=== PATIENT | male | born 1980 | race Caucasian/White ===

== ENCOUNTER 2020-01-28 17:36 | Emergency (ER) | payer BC ==
[2020-01-28] MEDS ORDERED: Orphenadrine 100 MG Tab.ER PO STA (18:04)
--- NOTE | 2020-01-28 18:09 | EDM.PDOC ---
<SudheerDavi Calista - Last Filed: 01/28/20 18:54> ED HPI GENERAL MEDICAL PROBLEM - General Chief Complaint: Chest Pain Stated Complaint: CHEST PAIN Time Seen by Provider: 01/28/20 17:46 Source of Information: Reports: Patient History Limitations: Reports: No Limitations - History of Present Illness INITIAL COMMENTS - FREE TEXT/NARRATIVE: Mr. Ford is a very pleasant 39-year-old man with a past medical history significant for obesity and untreated hypertension and dyslipidemia, who now presents the ED stating that he developed left chest pain, stabbing in character , 4 days ago, on or about , 01/24/2020. He states that the sensation is a pain, not a discomfort. It has been waxing and waning. It is made worse if he coughs, lifts something, or moves. He states that he has had a nonproductive cough for about 2 weeks, and dyspnea on exertion for about 1.5 hours. He states that he has felt constipated for about 1 day, and complains of some left upper quadrant danie pain. He has had some nausea on and off today. No associated diaphoresis or sense of impending doom. No prior similar symptoms. Other than the above symptoms, the patient denies recent fever, chills, sore throat, ear pain, nasal or sinus congestion, dyspnea at rest, palpitations, vomiting, diarrhea, urinary symptoms, recent weight gain or weight loss, recent bloody bowel movements or black bowel movements, recent joint aches, headaches, or rashes. The patient states that he was seen at the [facility] yesterday, and that blood work, chest x-ray, and an ECG were performed. He was told that everything returned negative, and it was suspected that his chest pain may have been due to GERD. He was prescribed sucralfate tablets for that, as well as lisinopril/hydrochlorothiazide for his blood pressure. He now presents to the ED because his pain has been getting worse, not better, despite the medications. Here in the ED the patient's initial BP is found to be elevated at 193/123, otherwise, he is hemodynamically stable, afebrile, saturating 96% on room air. The patient does not have a PCP. Left Chest Pain Score (Numeric/FACES): 5 - Related Data Allergies Allergy/AdvReac Type Severity Reaction Status Date / Time No Known Allergies Allergy Verified 01/28/20 17:46 Home Meds: Home Meds Sucralfate 1 gm PO QID 01/28/20 [History] Past Medical History Cardiovascular History: Reports: High Cholesterol (untreated), Hypertension ( untreated) Endocrine/Metabolic History: Reports: Obesity/BMI 30+ - Past Surgical History HEENT Surgical History: Reports: Myringotomy w Tube(s) (bilateral), Oral Surgery (wisdom teeth extraction) GI Surgical History: Reports: Appendectomy Musculoskeletal Surgical History: Reports: Other (See Below) (Right biceps tendon repair) Social & Family History - Tobacco Use Smoking Status *Q: Current Every Day Smoker Years of Tobacco use: 22 Packs/Tins Daily: 3 - Caffeine Use Caffeine Use: Reports: Coffee, Energy Drinks - Alcohol Use Alcohol Use History: Yes Alcohol Use Frequency: Socially (occasionally to excess) - Recreational Drug Use Recreational Drug Use: Yes Drug Use in Last 12 Months: No Recreational Drug Type: Reports: Cocaine (last took 2003), Marijuana/Hashish ( last smoked 2007) - Living Situation & Occupation Living situation: Reports: , with Family (Son, nephew) 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 ED EXAM, GENERAL - Physical Exam Exam: See Below Exam Limited By: No Limitations General Appearance: Alert, WD/WN, No Apparent Distress Eye Exam: Bilateral Eye: EOMI, Normal Inspection Ears: Normal External Exam, Hearing Grossly Normal Nose: Normal Inspection Throat/Mouth: Normal Inspection, Normal Lips, Normal Voice, No Airway Compromise Head: Atraumatic, Normocephalic Neck: Normal Inspection, Full Range of Motion Respiratory/Chest: No Respiratory Distress, Lungs Clear, Normal Breath Sounds, No Accessory Muscle Use, Other (Left chest pain relieved with palpation of his left pectoralis muscle, but exacerbated by crossing his left upper extremity across his chest. No modification of pain by pressing his hands together in front of his chest with his arms outstretched.) Cardiovascular: Normal Peripheral Pulses, Regular Rate, Rhythm, No Edema, No Gallop, No JVD, No Murmur, No Rub Peripheral Pulses: 4+: Radial (L), Radial (R) GI/Abdominal: Normal Bowel Sounds, Soft, No Organomegaly, No Distention, No Abnormal Bruit, No Mass, Tender (Left upper quadrant only. Completely nontender elsewhere.) (Male) Exam: Deferred Rectal (Males) Exam: Deferred Back Exam: Normal Inspection, Full Range of Motion, NT Extremities: Normal Inspection, Normal Range of Motion, No Pedal Edema, Normal Capillary Refill Neurological: Alert, Oriented, Normal Cognition, No Motor/Sensory Deficits Psychiatric: Normal Affect Skin Exam: Warm, Dry, Intact, Normal Color, No Rash EKG INTERPRETATION EKG Date: 01/28/20 Time: 17:41 Rhythm: NSR Rate (Beats/Min): 84 [place]: Normal P-Wave: Present QRS: Normal ST-T: Normal QT: Normal Comparison: NA - No Prior EKG Course - Vital Signs Last Recorded V/S: Last Vital Signs Temp 36.7 C 01/28/20 17:42 Pulse 84 01/28/20 17:42 Resp 16 01/28/20 17:42 BP 193/123 H 01/28/20 17:42 Pulse Ox - Orders/Labs/Meds Orders: Active Orders 24 hr Category Date Time Status EKG Documentation Completion [RC] STAT Care 01/28/20 17:50 Active Labs: Laboratory Tests 01/28/20 01/28/20 01/28/20 Range/Units 18:18 18:18 18:18 WBC (4.23-9.07) K/mm3 RBC (4.63-6.08) M/mm3 Hgb (13.7-17.5) gm/dl Hct (40.1-51.0) % MCV (79.0-92.2) fl MCH (25.7-32.2) pg MCHC (32.2-35.5) g/dl RDW Std Deviation (35.1-43.9) fL Plt Count (163-337) K/mm3 MPV (9.4-12.3) fl Neut % (Auto) (34.0-67.9) % Lymph % (Auto) (21.8-53.1) % [place] % (Auto) (5.3-12.2) % Eos % (Auto) (0.8-7.0) Baso % (Auto) (0.1-1.2) % Neut # (Auto) (1.78-5.38) K/mm3 Lymph # (Auto) (1.32-3.57) K/mm3 [place] # (Auto) (0.30-0.82) K/mm3 Eos # (Auto) (0.04-0.54) K/mm3 Baso # (Auto) (0.01-0.08) K/mm3 Manual Slide Review PT 10.2 (9.7-12.0) SECONDS INR 0.93 APTT 27 (22-31) SECONDS D-Dimer, Quantitative 0.20 (0.19-0.50) mg/L Sodium 142 (136-145) mEq/L Potassium 3.8 (3.5-5.1) mEq/L Chloride 105 (98-107) mEq/L Carbon Dioxide 30 (21-32) mEq/L Anion Gap 10.8 (5-15) BUN 10 (7-18) mg/dL Creatinine 1.1 (0.7-1.3) mg/dL Est Cr Clr Drug Dosing 97.98 mL/min Estimated GFR (MDRD) > 60 (>60) mL/min BUN/Creatinine Ratio 9.1 L (14-18) Glucose 109 H (74-106) mg/dL Calcium 8.9 (8.5-10.1) mg/dL Total Bilirubin 0.6 (0.2-1.0) mg/dL AST 16 (15-37) U/L ALT 30 (16-63) U/L Alkaline Phosphatase 76 (46-116) U/L Troponin I < 0.017 (0.00-0.056) ng/mL NT-Pro-B Natriuret Pep 77 (0-125) pg/mL Total Protein 7.3 (6.4-8.2) g/dl Albumin 3.9 (3.4-5.0) g/dl Globulin 3.4 gm/dL Albumin/Globulin Ratio 1.2 (1-2) 01/28/20 Range/Units 18:18 WBC 11.00 H (4.23-9.07) K/mm3 RBC 5.38 (4.63-6.08) M/mm3 Hgb 16.6 (13.7-17.5) gm/dl Hct 49.9 (40.1-51.0) % MCV 92.8 H (79.0-92.2) fl MCH 30.9 (25.7-32.2) pg MCHC 33.3 (32.2-35.5) g/dl RDW Std Deviation 44.0 H (35.1-43.9) fL Plt Count 321 (163-337) K/mm3 MPV 10.3 (9.4-12.3) fl Neut % (Auto) 62.9 (34.0-67.9) % Lymph % (Auto) 24.3 (21.8-53.1) % [place] % (Auto) 6.7 (5.3-12.2) % Eos % (Auto) 5.1 (0.8-7.0) Baso % (Auto) 0.8 (0.1-1.2) % Neut # (Auto) 6.92 H (1.78-5.38) K/mm3 Lymph # (Auto) 2.67 (1.32-3.57) K/mm3 [place] # (Auto) 0.74 (0.30-0.82) K/mm3 Eos # (Auto) 0.56 H (0.04-0.54) K/mm3 Baso # (Auto) 0.09 H (0.01-0.08) K/mm3 Manual Slide Review Normal smear PT (9.7-12.0) SECONDS INR APTT (22-31) SECONDS D-Dimer, Quantitative (0.19-0.50) mg/L Sodium (136-145) mEq/L Potassium (3.5-5.1) mEq/L Chloride (98-107) mEq/L Carbon Dioxide (21-32) mEq/L Anion Gap (5-15) BUN (7-18) mg/dL Creatinine (0.7-1.3) mg/dL Est Cr Clr Drug Dosing mL/min Estimated GFR (MDRD) (>60) mL/min BUN/Creatinine Ratio (14-18) Glucose (74-106) mg/dL Calcium (8.5-10.1) mg/dL Total Bilirubin (0.2-1.0) mg/dL AST (15-37) U/L ALT (16-63) U/L Alkaline Phosphatase (46-116) U/L Troponin I (0.00-0.056) ng/mL NT-Pro-B Natriuret Pep (0-125) pg/mL Total Protein (6.4-8.2) g/dl Albumin (3.4-5.0) g/dl Globulin gm/dL Albumin/Globulin Ratio (1-2) Meds: Medications Discontinued Medications Generic Name Dose Route Start Last Admin Trade Name Jt PRN Reason Stop Dose Admin Orphenadrine Citrate 100 mg 01/28/20 18:04 01/28/20 18:18 Norflex PO 01/28/20 18:05 100 mg ONETIME STA Administration - Re-Assessments/Exams Free Text/Narrative Re-Assessment/Exam: 01/28/20 18:05 As above, the patient has had 2 weeks of a dry cough, left chest pain waxing and waning for the past 4 days, constipation for 1 day, and 1.5 hours of dyspnea on exertion. His left-sided chest pain is relieved with palpation, and exacerbated with crossing his left upper extremity across his chest, indicating a musculoskeletal etiology. His ECG, obtained at triage, is completely normal. I have ordered a work-up that includes blood work, a chest x-ray, and an abdominal right x-ray. 01/28/20 18:37 2-view chest x-ray is read by Dr. Hair as: 1. Nothing acute is seen on 2 view chest x-ray. Upright abdomen x-ray is read by Dr. Hair as: 1. Nothing acute is seen on single upright abdominal x-ray. 01/28/20 18:[address] Rojas, and care of the patient turned over to him at this time, for change of shift. Departure - Departure Disposition: Home, Self-Care 01 Clinical Impression: Musculoskeletal chest pain, Poorly-controlled hypertension, Morbid obesity with BMI of 45.0-49.9, adult, Tobacco abuse - Discharge Information Referrals: PCP,None [Primary Care Provider] - Forms: ED Department Discharge Additional Instructions: On the basis of your history as well as you are physical exam and unremarkable labs EKG and chest x-ray it seems that the pain you are complaining of is musculoskeletal. However in light of your risk factors of poorly controlled high blood pressure cigarette smoking and overweight status it would be recommendable for you to see a board handler upon your return to [place] later this week. You should have a stress test and an echocardiogram. You are urged to stop smoking. Do not hesitate to return to the emergency department immediately for any subsequent chest pain especially if associated with shortness of breath sweating passing out or any other troubling symptoms. Sepsis Event Note - Evaluation Sepsis Screening Result: No Definite Risk - Focused Exam Vital Signs: Vital Signs Temp Pulse Resp BP 01/28/20 17:42 36.7 C 84 16 193/123 H Date Exam was Performed: 01/28/20 Time Exam was Performed: 18:54 <Dominik Rojas - Last Filed: 01/28/20 19:19> Course - Re-Assessments/Exams Free Text/Narrative Re-Assessment/Exam: 01/28/20 19:15 Assumed care at shift change. The various evaluations have been reviewed and discussed with the patient. There are no salient abnormals. Patient does have considerable risk factors as noted below. Blood pressure initially was quite elevated but moderated during the visit without any specific intervention. See instructions to patient. Departure - Departure Time of Disposition: 19:16 Condition: Good Sepsis Event Note - Focused Exam Date Exam was Performed: 01/28/20 Time Exam was Performed: 19:15
--- NOTE | 2020-01-28 18:28 | CR ---
Chest: PA and lateral views of the chest were obtained. Comparison: No prior chest imaging. Heart size and mediastinum are normal. Minimal left basilar atelectasis is noted. Lungs otherwise are clear with no acute parenchymal change. Bony structures are within normal limits for the patient's age. Impression: 1. Nothing acute is seen on 2 view chest x-ray. Diagnostic code #2 This report was dictated in MDT
--- NOTE | 2020-01-28 18:29 | CR ---
Abdomen: Single upright view of the abdomen was obtained. Pelvis was not included on the exam. Bowel gas pattern appears to be normal. Bony structures appear within normal limits for the patient's age. No free air is seen. Impression: 1. Nothing acute is seen on single upright abdominal x-ray. Diagnostic code #2 This report was dictated in MDT
== END 2020-01-28 19:36 | disposition home or self-care (01) ==
LOC: JD.ED 17:36
DX: R07.89 Other chest pain (principal); I10 Essential (primary) hypertension; F17.210 Nicotine dependence, cigarettes, uncomplicated; E66.01 Morbid (severe) obesity due to excess calories; Z68.42 Body mass index [BMI] 45.0-49.9, adult; Z79.899 Other long term (current) drug therapy
CPT/HCPCS: 36415; 71046; 74018; 80053; 83880; 84484; 85025; 85379; 85610; 85730; 93005; 99285; A9270; 93010; 99284